=== PATIENT | male | born 1985 | race Asian ===

== ENCOUNTER 2017-05-10 08:00 | Emergency (ER) | payer MEDICAID ==
[~2017-05-10] VITALS: Ht 182.9 cm; Wt 100.7 kg
[2017-05-10 08:01] VITALS: BP 148/87
[2017-05-10] MEDS ORDERED: ALBUTEROL/IPRATROPIUM 2.5MG/0.5MG, 3 ML NPPB ONE (08:30)
[2017-05-10] MEDS ORDERED: ALBUTEROL/IPRATROPIUM 2.5MG/0.5MG, 3 ML ONE (08:32)
== END 2017-05-10 09:03 | disposition home or self-care (01) ==
LOC: ED 08:50
DX: J45.31 Mild persistent asthma with (acute) exacerbation (principal); B96.89 Other specified bacterial agents as the cause of diseases classified elsewhere; J20.8 Acute bronchitis due to other specified organisms; F17.210 Nicotine dependence, cigarettes, uncomplicated
CPT/HCPCS: 71046; 94640; 99284; J7512; J7620